=== PATIENT | female | born 1985 | race Caucasian/White ===

== ENCOUNTER 2016-09-01 09:28 | Emergency (ER) | payer OTHER ==
[~2016-09-01] VITALS: Ht 165.1 cm; Wt 86.2 kg
[2016-09-01 09:30] VITALS: BP 122/78
== END 2016-09-01 10:20 | disposition home or self-care (01) ==
LOC: ED 09:28
DX: O26.892 Other specified pregnancy related conditions, second trimester (principal); M77.8 Other enthesopathies, not elsewhere classified; Z3A.24 24 weeks gestation of pregnancy